=== PATIENT | female | born 1945 | race Caucasian/White ===

== ENCOUNTER 2025-03-24 13:22 | Outpatient (CLI) | payer MEDICARE, OTHER | END 2025-03-24 13:23 | disposition home or self-care (01) | LOC: CSHMAMMO 13:22 | PROVIDERS: ATTEND Family Medicine Sports Medicine | DX: Z12.31 Encounter for screening mammogram for malignant neoplasm of breast (principal); Z98.890 Other specified postprocedural states; N64.89 Other specified disorders of breast | CPT/HCPCS: 77063; 77067 ==

== ENCOUNTER 2025-03-27 13:58 | Outpatient (CLI) | payer MEDICARE, OTHER | END 2025-03-27 13:59 | disposition home or self-care (01) | LOC: CSHMAMMO 13:58 | PROVIDERS: ATTEND Family Medicine Sports Medicine | DX: N64.89 Other specified disorders of breast (principal) | CPT/HCPCS: 77065; G0279 ==